=== PATIENT | male | born 1995 | race Caucasian/White ===

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

== ENCOUNTER 2017-09-19 18:28 | Emergency (ER) | payer MEDICAID ==
[2017-09-19 19:12] VITALS: BMI 20.3
[2017-09-19 19:15] VITALS: RESP 18
--- NOTE | 2017-09-19 20:28 | C.PDOC ---
History Of Present Illness 21 year old male presents to the ER for a complaint of dizziness and vomiting after taking suboxone today. Patient states he usually takes xanax 4 times a day for the past 6 months, however his last use was 5 days ago. Patient states he has been taking xanax because he has trouble sleeping but is now trying to cut down. Patient reports he lives with his aunt and is currently in his senior year of high school. When offered blood work patient states he was sent to [place] last month by his PMD, Dr. Bradley, to have blood work done but for unknown reasons. Patient denies suicidal ideation, homicidal ideation, or recent seizures. No chest pian/ no sob/ no fever/ chills. no nausea not vomit. pt is other cort[place] well. He is not depressed. He is not suicidal or homicidal. He is not hearing voices. He does feel he cannot sleep. Chief Complaint (Nursing): Ingestion, Accidental History Per: Patient History/Exam Limitations: no limitations Onset/Duration Of Symptoms: Hrs Current Symptoms Are (Timing): Still Present Severity: Mild Recent travel outside of the [facility]: No Past Medical History Reviewed: Historical Data, Nursing Documentation, Vital Signs Vital Signs: Last Vital Signs Temp 98.1 F 09/19/17 20:42 Pulse 62 09/19/17 20:42 Resp 18 09/19/17 20:42 BP 109/60 09/19/17 20:42 Pulse Ox 99 09/19/17 21:21 - Medical History PMH: No Chronic Diseases Surgical History: No Surg Hx Family History: States: Unknown Family Hx - Social History Hx Alcohol Use: No Hx Substance Use: Yes (XANAX) - Immunization History Hx Tetanus Toxoid Vaccination: No Hx Influenza Vaccination: No Hx Pneumococcal Vaccination: No Review Of Systems Constitutional: Negative for: Fever, Chills, Sweats, Weakness, Malaise, Weight loss Eyes: Negative for: Pain, Vision Change, Conjunctivae Inflammation, Eyelid Inflammation, Redness, Other ENT: Negative for: Ear Pain, Ear Discharge, Nose Pain Cardiovascular: Negative for: Chest Pain, Palpitations, Orthopnea, Paroxysmal Noc. Dyspnea, Edema, Light Headedness Respiratory: Negative for: Cough, Shortness of Breath, Hemoptysis, SOB with Excertion, Pleuritic Pain, Sputum, Wheezing Gastrointestinal: Positive for: Nausea, Vomiting. Negative for: Abdominal Pain , Diarrhea, Constipation, Melena, Hematochezia, Hematemesis, Rectal Pain Genitourinary: Negative for: Dysuria, Hematuria Musculoskeletal: Negative for: Neck Pain, Back Pain Skin: Negative for: Rash Neurological: Positive for: Dizziness. Negative for: Weakness, Numbness, Incoordination, Change in Speech, Seizures, Altered Mental Status, Headache Psych: Positive for: Anxiety. Negative for: Depression, Psychosis, Suicidal ideation, Other (Homicidal ideation) Physical Exam - Physical Exam Appears: Non-toxic, No Acute Distress Skin: Normal Color, Warm, Dry Head: Atraumatic, Normacephalic Eye(s): bilateral: Normal Inspection Nose: Normal Oral Mucosa: Moist Throat: Normal Neck: Normal Chest: Symmetrical, No Tenderness Cardiovascular: Rhythm Regular Respiratory: Normal Breath Sounds, No Rales, No Rhonchi, No Wheezing Gastrointestinal/Abdominal: Soft, No Tenderness Rectal: Deferred Back: Normal Inspection Neurological/Psych: Oriented x3, Normal Speech, No Other (Tremors/Shakes) Gait: Steady ED Course And Treatment O2 Sat by Pulse Oximetry: 99 (Room air) Pulse Ox Interpretation: Normal Medical Decision Making Medical Decision Making: Patient offered blood work but refuses all blood work at this time, patient offered crisis counseling but refuses at this time, agrees to seek outpatient counseling. Gave patient list of outpatient sites and given Rx for ambien. Disposition - Disposition Referrals: [facility] [Outside] [facility] [Outside] [email or web address] [Outside] Disposition: HOME/ ROUTINE Disposition Time: 12:00 Condition: STABLE Additional Instructions: follow up as instructed Prescriptions: Zolpidem [Ambien] 5 mg PO HS PRN #10 tab PRN Reason: Sleep Instructions: Generalized Anxiety Disorder (ED) Forms: General Discharge Instructions, [facility] (Wolof), School Excuse - Clinical Impression Clinical Impression: Anxiety - Scribe Statement The provider has reviewed the documentation as recorded by the Scribe Akshat Norton
[2017-09-19 20:43] VITALS: BP 109/60; PULSE 62; TEMP 98.1
[2017-09-19 20:54] VITALS: O2SAT 99
== END 2017-09-19 20:45 | disposition home or self-care (01) ==
LOC: C.ER 18:28
DX: F41.9 Anxiety disorder, unspecified (principal)

== ENCOUNTER 2018-11-08 14:38 | Emergency (ER) | payer MEDICAID ==
[2018-11-08 14:39] VITALS: BMI 20.3
[2018-11-08 14:57] VITALS: O2SAT 99
[2018-11-08 15:25] LABS: URINE BILIRUBIN NEGATIVE (NEGATIVE); URINE BLOOD NEGATIVE (NEGATIVE); URINE CLARITY Clear (Clear); URINE COLOR Yellow (YELLOW); URINE GLUCOSE (UA) NORMAL (Normal); URINE LEUKOCYTE ESTERASE NEG Leu/uL (Negative); URINE PROTEIN NEGATIVE (NEGATIVE); URINE UROBILINOGEN NORMAL mg/dL (0.2-1.0)
[2018-11-08 15:32] LABS: BASO % 0.5 % (0.0-2.0); EOS # 0.1 K/uL (0.0-0.7); EOS % 2.3 % (0.0-4.0); LYMPH # 2.6 K/uL (1.0-4.3); LYMPH % 39.4 % (20.0-40.0); MEAN CELL VOLUME 85.5 fL (80.0-94.0); MEAN CORPUSCULAR HEMOGLOBIN 29.2 pg (27.0-31.0); MEAN CORPUSCULAR HGB CONC 34.2 g/dL (33.0-37.0); MEAN PLATELET VOLUME 9.2 fL (7.2-11.7); MONO # 0.5 K/uL (0.0-0.8); MONO % 6.9 % (0.0-10.0); NEUT # 3.3 K/uL (1.8-7.0); NEUT % 50.9 % (50.0-75.0); NRBC % 0.1 % (0.0-2.0); RBC 4.79 Mil/uL (4.40-5.90); RED CELL DISTRIBUTION WIDTH 14.1 % (11.5-14.5); WHITE BLOOD COUNT 6.5 K/uL (4.8-10.8)
[2018-11-08 15:58] LABS: ALB/GLOB RATIO 1.9 (1.0-2.1); ALBUMIN 4.7 g/dL (3.5-5.0); ALT/SGPT 15 U/L (21-72); AST/SGOT 27 U/L (17-59); BLOOD UREA NITROGEN 14 mg/dL (9-20); CALCIUM 9.1 mg/dl (8.6-10.4); GFR NON-AFRICAN AMERICAN > 60
[2018-11-08 16:11] LABS: BARBITURATES, UR NEGATIVE (NEGATIVE); PHENCYCLIDINE, UR NEGATIVE (NEGATIVE)
[2018-11-08 16:16] LABS: BENZODIAZEPINES, UR POSITIVE (NEGATIVE); OPIATES, UR POSITIVE (NEGATIVE)
--- NOTE | 2018-11-08 16:19 | C.PDOC ---
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 Patient denies having suicidal ideation, homicidal ideation, and active physical complaints. Time Seen by Provider: 11/08/18 15:00 Chief Complaint (Nursing): Substance Abuse History Per: Patient History/Exam Limitations: no limitations Past Medical History Reviewed: Historical Data, Nursing Documentation, Vital Signs Vital Signs: Last Vital Signs Temp 98.1 F 11/08/18 14:56 Pulse 75 11/08/18 14:56 Resp 20 11/08/18 14:56 BP 122/78 11/08/18 14:56 Pulse Ox 99 11/08/18 14:56 - Medical History PMH: Anxiety, Depression, Schizophrenia Denies: Diabetes, Hepatitis, HIV, HTN, Chronic Kidney Disease, Seizures, Sexually Transmitted Disease Surgical History: No Surg Hx Family History: States: No Known Family Hx - Social History Hx Alcohol Use: Yes Hx Substance Use: Yes (XANAX, marijuana) - Immunization History Hx Tetanus Toxoid Vaccination: No Hx Influenza Vaccination: No Hx Pneumococcal Vaccination: No Review Of Systems Except As Marked, All Systems Reviewed And Found Negative. Constitutional: Negative for: Fever, Chills Psych: Negative for: Suicidal ideation Physical Exam - Physical Exam Appears: No Acute Distress Skin: Normal Color, Warm, Dry Head: Atraumatic, Normacephalic Eye(s): bilateral: Normal Inspection Nose: Normal Oral Mucosa: Moist Neck: Supple Chest: Symmetrical Respiratory: Normal Breath Sounds, No Rales, No Rhonchi, No Wheezing Gastrointestinal/Abdominal: Normal Exam, Soft, No Tenderness, No Guarding, No Rebound Neurological/Psych: Oriented x3, Normal Speech ED Course And Treatment - Laboratory Results Result Diagrams: 11/08/18 15:27 11/08/18 15:27 Lab Results: Total Bilirubin 0.4 mg/dL (0.2-1.3) 11/08/18 15:27 AST 27 U/L (17-59) 11/08/18 15:27 ALT 15 U/L (21-72) L 11/08/18 15:27 Alkaline Phosphatase 80 U/L (38-126) 11/08/18 15:27 Total Protein 7.2 g/dL (6.3-8.3) 11/08/18 15:27 Albumin 4.7 g/dL (3.5-5.0) 11/08/18 15:27 Globulin 2.5 gm/dL (2.2-3.9) 11/08/18 15:27 Albumin/Globulin Ratio 1.9 (1.0-2.1) 11/08/18 15:27 Urine Color Yellow (YELLOW) 11/08/18 15:16 Urine Clarity Clear (Clear) 11/08/18 15:16 Urine pH 6.0 (5.0-8.0) 11/08/18 15:16 Ur Specific [place] 1.026 (1.003-1.030) 11/08/18 15:16 Urine Protein Negative mg/dL (NEGATIVE) 11/08/18 15:16 Urine Glucose (UA) Normal mg/dL (Normal) 11/08/18 15:16 Urine Ketones Negative mg/dL (NEGATIVE) 11/08/18 15:16 Urine Blood Negative (NEGATIVE) 11/08/18 15:16 Urine Nitrate Negative (NEGATIVE) 11/08/18 15:16 Urine Bilirubin Negative (NEGATIVE) 11/08/18 15:16 Urine Urobilinogen Normal mg/dL (0.2-1.0) 11/08/18 15:16 Ur Leukocyte Esterase Neg Diana/uL (Negative) 11/08/18 15:16 Urine RBC (Auto) < 1 /hpf (0-3) 11/08/18 15:16 O2 Sat by Pulse Oximetry: 99 (RA) Pulse Ox Interpretation: Normal Medical Decision Making Medical Decision Making: Assessment: Substance Abuse Plan: --Labs --UA Patient seen by crisis and no beds are available. Patient discharged home. Disposition - Disposition Disposition: HOME/ ROUTINE Disposition Time: 17:21 Condition: STABLE Additional Instructions: follow up as discussed return to ER if symptoms worsens or progress Instructions: Polysubstance Abuse (DC) Forms: [facility] ([place]inean), General Discharge Instructions - Clinical Impression Clinical Impression: Substance abuse - Scribe Statement The provider has reviewed the documentation as recorded by the Faisalibelsie Capps Provider Attestation: All medical record entries made by the Scribe were at my direction and personally dictated by me. I have reviewed the chart and agree that the record accurately reflects my personal performance of the history, physical exam, medical decision making, and the department course for this patient. I have also personally directed, reviewed, and agree with the discharge instructions and disposition.
[2018-11-08 17:51] VITALS: BP 111/75; PULSE 68; RESP 16; TEMP 98.3
== END 2018-11-08 17:50 | disposition home or self-care (01) ==
LOC: C.ER 14:38
DX: F19.10 Other psychoactive substance abuse, uncomplicated (principal)